=== PATIENT | female | born 1965 | race Caucasian/White ===

== ENCOUNTER → 2016-12-31 | Outpatient (CLI) | payer BC ==
[~2016-12-31] MED LIST: DEXTROAMP-AMPHET PO; FLNIN/ NAE; LSX40 PO; THY/120 PO; THYR15TA PO
== END | disposition home or self-care (01) ==
LOC: C.PAPS 11:53
PROVIDERS: ATTEND Family Medicine
DX: Z01.419 Encounter for gynecological examination (general) (routine) without abnormal findings (principal)